=== PATIENT | male | born 1955 | race Hispanic/Latino ===

== ENCOUNTER 2017-09-19 10:12 | Inpatient (IN) | payer BC ==
--- NOTE | 2017-09-19 13:23 | Consultation ---
History of Present Illness Consult date: 09/19/17 Requesting physician: CHRIS MCCALL Consult reason: congestive heart failure, other History of present illness: Patient is a 62 year old male with Past Medical History of CHF, CKD, Pulmonary HTN, DM, CAD, PCI and Rt Ventricular Dysfunction. Patient presented today for schedule outpatient follow-up appt with Dr Ware with complaints of shortness of breath, orthopnea, PND and bilaterally lower extremites edema. Patient complained of abdominal and upper extremity ecchymosis for the past few days. Patient was then directly admitted from Cardiology office for further evaluation/management. Patient denies chest pain, palpitation, nausea, vomiting , diaphoresis, dizziness or syncope. Past History Past Medical History: acute [place], CAD, diabetes, heart failure, hypertension, other (RV Dysfunction, Pulmonary HTN, CKD) Past Surgical History: Other (BiV ICD, PCI) Medications and Allergies Allergies Allergy/AdvReac Type Severity Reaction Status Date / Time iodine Allergy Anaphylaxis Verified 05/01/17 09:49 latex AdvReac Unknown Unverified 09/19/17 10:30 Home Medications Medication Instructions Recorded Confirmed Last Taken Type Aspirin EC [Aspirin Enteric Coated 81 mg PO DAILY 05/01/17 05/01/17 04/23/17 History TAB] AtorvaSTATin 80 mg PO DAILY 05/01/17 05/01/17 04/23/17 History Brilinta 90 mg PO DAILY 05/01/17 05/01/17 04/23/17 History Carvedilol 3.125 mg PO BID 05/01/17 05/01/17 04/23/17 History Renvela 800 mg PO TID 05/01/17 05/01/17 04/23/17 History
--- NOTE | 2017-09-19 13:27 | XRay Report ---
AP CHEST: HISTORY: Short of breath No comparison. There is moderate cardiomegaly, mild pulmonary venous congestion and moderate to large right pleural effusion which compresses the inferior half of the right lung. No left pleural effusion. Pacemaker device is in position. IMPRESSION: CHF
--- NOTE | 2017-09-19 13:41 | Event Note ---
Date: 09/19/17 Patient is a 62 year old male with a past medical history significant for acute on chronic systolic heart failure, ICMP (EF20), CKD, Pulmonary HTN, DM, CAD, PCI , recent BI-V AICD implantation. He is followed in our office by Dr. Ware. Patient presented today for scheduled outpatient follow-up appt with Dr Ware with complaints of progressively worsening shortness of breath, orthopnea, PND and bilateral lower extremity edema for the past several weeks. Patient also c/o of abdominal and bilateral upper extremity ecchymosis for the past few days. Patient was then referred to for direct admit per hospitalists for further evaluation/management. Patient denies chest pain, palpitations, nausea, vomiting, diaphoresis, dizziness or syncope. Of note, patient underwent BiV ICD implantation on 09/12/2017 @ [facility] per Dr Velasquez. Patient was discharged from [facility] on 09/14/2017 following ICD implantation and treatment for acute on chronic systolic heart failure. Following admission, patient is found to be short of breath at rest; chest x ray reveals moderate to large right pleural effusion with mild pulmonary venous congestion; ECG with no acute ischemic changes. Patient will be initiated on IV diuretics and inotropic therapy. Pulmonary and nephrology have been consulted. Mario DUMAS NP / DR. SILVIO GE
[2017-09-19] MEDS ORDERED: DOBUTREX DRIP 500MG/D5W 250ML 500 MG/250 ML BAG IV SCH (14:00)
[2017-09-19 14:26] LABS: Hemoglobin 10.4 gm/dl (11.8-15.2); Mean Corpuscular HGB Conc 34 % (32-34); Mean Corpuscular Hemoglobin 30 pg (28-32); Mean Corpuscular Volume 89 fl (84-94); Platelet Count 178 K/mm3 (140-440); Red Blood Count 3.47 M/mm3 (3.65-5.03); White Blood Count 10.7 K/mm3 (4.5-11.0)
[2017-09-19 14:39] LABS: INR 1.06 (0.87-1.13)
[2017-09-19 16:05] LABS: Albumin 3.6 g/dL (3.9-5); Albumin/Globulin Ratio 1.2 %; Bilirubin,Total 0.9 mg/dL (0.1-1.2); Calcium 8.9 mg/dL (8.4-10.2); Chloride 95.6 mmol/L (98-107); Potassium 4.2 mmol/L (3.6-5.0); Total Protein 6.6 g/dL (6.3-8.2)
[2017-09-19] MEDS: BUMEX IV SCH (19:30)
--- NOTE | 2017-09-19 19:45 | History and Physical Report ---
History of Present Illness Date of admission: 09/19/17 11:56 Chief complaint: I cant breathe History of present illness: 62 YO Male with Systolic CHF(EF 20%), Pulmonary HTN, Chronic Respiratory Failure , HTN, DM, CAD directly admitted to the hospitalist service at the request of Dr. Beasley. Pt seen and evaluated upon arrival on telemetry floor. Pt states that he has experienced progressively worsening shortness of breath over the past 3 week. Pt now has symptoms at rest, and has difficulty with ambultion and conducting activities of daily living due to shortness of breath. Pt acknowledges Orthopnea/PND, as well as worsening bilateral lower extremity edema. Pt states that he is compliant with medication, and low sodium diet. Patient denies fever, chills, chest pain, palpitations, nausea, vomiting, diaphoresis, dizziness or syncope, prolonged travel/immobility, hemoptysis, trauma, individual/family history of DVT/PE. Past History Past Medical History: CAD, diabetes, heart failure, hypertension Past Surgical History: Other (ICD Placement) Social history: , lives with family Family history: hypertension Medications and Allergies Allergies Allergy/AdvReac Type Severity Reaction Status Date / Time iodine Allergy Anaphylaxis Verified 05/01/17 09:49 latex AdvReac Unknown Unverified 09/19/17 10:30 Home Medications Medication Instructions Recorded Confirmed Last Taken Type Aspirin EC [Aspirin Enteric Coated 81 mg PO DAILY 05/01/17 09/19/17 09/19/17 09: 00 History TAB] AtorvaSTATin 80 mg PO DAILY 05/01/17 09/19/17 09/19/17 09:00 History Carvedilol 3.125 mg PO BID 05/01/17 09/19/17 09/19/17 09:00 History Levemir VIAL 35 units SC HS 09/19/17 09/19/17 09/18/17 22:00 History Plavix 75 mg PO DAILY 09/19/17 09/19/17 09/19/17 09:00 History Active Meds: Active Medications Aspirin (Baby Aspirin) 81 mg PO QDAY [facility] Atorvastatin Calcium (Lipitor) 80 mg PO QHS [facility] Bumetanide (Bumex) 1 mg IV BID@0600,1800 [facility] Carvedilol (Coreg) 12.5 mg PO BID [facility] Clopidogrel Bisulfate (Plavix) 75 mg PO QDAY [facility] Dobutamine HCl/Dextrose (Dobutrex Drip 500mg/D5w 250ml) 500 mg in 250 mls @ 12.915 mls/hr IV [facility] PRN Reason: 5 MCG/KG/MIN Review of Systems Constitutional: weight gain, no fever, no chills Ears, nose, mouth and throat: no ear pain, no ear discharge, no tinnitis, no decreased hearing, no nose pain, no nasal congestion Cardiovascular: orthopnea, shortness of breath, dyspnea on exertion, paroxysmal nocturnal dyspnea, leg edema, decreased exercise tolerance, no chest pain Respiratory: no cough, no cough with sputum, no excessive sputum, no hemoptysis Gastrointestinal: no nausea, no vomiting, no diarrhea, no constipation Genitourinary Male: no dysuria, no hematuria, no flank pain, no discharge Rectal: no pain, no incontinence, no bleeding Musculoskeletal: no neck stiffness, no neck pain, no shooting arm pain, no arm numbness/tingling Integumentary: no rash, no pruritis, no redness, no sores, no wounds Neurological: no head injury, no paralysis, no weakness, no parathesias, no numbness Psychiatric: no anxiety, no memory loss, no change in sleep habits, no sleep disturbances Endocrine: no cold intolerance, no heat intolerance, no polyphagia, no excessive thirst, no polydipsia Hematologic/Lymphatic: no easy bruising, no easy bleeding Allergic/Immunologic: no urticaria, no allergic rhinitis, no wheezing Exam - Constitutional General appearance: Present: mild distress - EENT Eyes: Present: PERRL ENT: hearing intact, clear oral mucosa - Neck Neck: Present: supple, normal ROM - Respiratory Respiratory effort: labored Respiratory: bilateral: diminished, rales - Cardiovascular Heart Sounds: Present: S1 & S2. Absent: rub, click - Extremities Extremities: pulses symmetrical, No edema Extremity abnormal: edema Peripheral Pulses: within normal limits - Abdominal General gastrointestinal: Present: soft, non-tender, non-distended, normal bowel sounds Male genitourinary: Present: normal - Integumentary Integumentary: Present: clear, warm, dry - Musculoskeletal Musculoskeletal: gait normal, strength equal bilaterally - Psychiatric Psychiatric: appropriate mood/affect, intact judgment & insight - Neurologic Neurologic: CNII-XII intact, moves all extremities Results - Labs CBC & Chem 7: 09/19/17 14:02 09/20/17 04:00 Labs: Abnormal lab results 09/19/17 09/19/17 09/19/17 Range/Units 14:02 14:02 14:02 RBC 3.47 L (3.65-5.03) M/mm3 Hgb 10.4 L (11.8-15.2) gm/dl Hct 31.0 L (35.5-45.6) % Chloride 95.6 L (98-107) mmol/L Carbon Dioxide 31 H (22-30) mmol/L BUN 26 H (9-20) mg/dL Glucose 172 H (75-100) mg/dL POC Glucose (70-105) Alkaline Phosphatase 135 H (35-129) units/L NT-Pro-B Natriuret Pep 7991 H (0-900) pg/mL Albumin 3.6 L (3.9-5) g/dL 09/19/17 Range/Units 16:46 RBC (3.65-5.03) M/mm3 Hgb (11.8-15.2) gm/dl Hct (35.5-45.6) % Chloride (98-107) mmol/L Carbon Dioxide (22-30) mmol/L BUN (9-20) mg/dL Glucose (75-100) mg/dL POC Glucose 165 H (70-105) Alkaline Phosphatase (35-129) units/L NT-Pro-B Natriuret Pep (0-900) pg/mL Albumin (3.9-5) g/dL Assessment and Plan - Patient Problems (1) CHF (congestive heart failure) Current Visit: Yes Status: Acute Qualifiers: Congestive heart failure type: systolic Congestive heart failure chronicity : acute on chronic Qualified Code(s): I50.23 - Acute on chronic systolic ( congestive) heart failure Plan to address problem: Cardiology consulted, Admit to telemetry, cardiac enzymes, ekg, echo, afterload reduction, monitor uop q shift, monitor for negative fluid balance, diuresis, low sodium diet, Ionotropic support, nephrology consulted. (2) Acute respiratory failure Current Visit: Yes Status: Acute Qualifiers: Respiratory failure complication: hypoxia Qualified Code(s): J96.01 - Acute respiratory failure with hypoxia Plan to address problem: Supplemental oxygen, nebulizer therapy, pulmonary toilet, NIPPV as clinically indicated, diuretic therapy, incentive spirometry, early ambulation, Pulmonary consulted, (3) Diabetes Current Visit: Yes Status: Acute Qualifiers: Diabetes mellitus type: D Diabetes mellitus complication status: D Diabetes mellitus complication detail: D Diabetic retinopathy severity: D Proliferative retinopathy type: P Diabetes mellitus macular edema: D Diabetes mellitus alf insulin use: D Laterality: L Chronic kidney disease stage: C Plan to address problem: AD diet, insulin accu check (4) CAD (coronary artery disease) Current Visit: Yes Status: Acute Qualifiers: Coronary Disease-Associated Artery/Lesion type: [place] artery [place] vs. transplanted heart: [place] heart Associated angina: A Plan to address problem: Statin therapy, antiplatelet therapy, low cholesterol diet, telemetry monitoring , (5) DVT prophylaxis Current Visit: Yes Status: Acute
[2017-09-19] MEDS: COREG PO SCH (22:55)
[2017-09-20 06:11] LABS: Calcium 8.7 mg/dL (8.4-10.2); Chloride 96.4 mmol/L (98-107); Potassium 4.7 mmol/L (3.6-5.0)
[2017-09-20] MEDS: BUMEX IV SCH ×2 (06:58→17:46)
[2017-09-20] MEDS ORDERED: D50W (25GM) Syringe IV PRN (10:47)
--- NOTE | 2017-09-20 10:51 | Progress Note ---
Assessment and Plan Assessment and plan: 62 year old male with a past medical history significant for chronic systolic heart failure, ICMP (EF20), CKD, Pulmonary HTN, DM, CAD, PCI, recent BI-V AICD implantation, Chronic Respiratory Failure, directly admitted to the hospitalist service at the request of Dr. Beasley, admitted for CHF SOB, ART, orthopnea, CHF exacerbation RIght lung effusion- moderate to large new onset for thoracentesis, pulmonary input appreciated CHF (congestive heart failure) continue dobutamine drip, cards input appreciated, continue diuretics, BP unable to tolerate ricki/arb, continue B-Bl Acute respiratory failure continue supplemental oxygen Diabetes AD diet, insulin accu check CAD (coronary artery disease) patient known to [facility] Statin therapy, antiplatelet therapy, low cholesterol diet, telemetry monitoring , History Interval history: c/o sob, orthopnea and art, denies cp Hospitalist Physical - Physical exam Narrative exam: General.: Appears well, no distress, nontoxic HEENT: Moist mucous membranes, extraocular muscles intact, no lymphadenopathy Neck: supple Cardiac: S1-S2 heard Lungs: abscense of breath sounds in R lower lungs Abdomen: soft , nontender, nondistended, bowel sounds positive Extremities: no edema clubbing or cyanosis Skin: no rash or lesions Neurologic: no gross focal deficits Psych: appropriate behavior, appropriate mood, corporative, judgment intact - Constitutional Vitals: Temp Pulse Resp BP Pulse Ox 98.4 F 93 H 16 96/69 95 09/20/17 07:45 09/20/17 07:45 09/20/17 07:45 09/20/17 07:45 09/20/17 07:45 General appearance: Present: mild distress Results - Labs CBC & Chem 7: 09/22/17 05:19 09/22/17 05:19 Labs: Laboratory Last Values WBC 10.7 K/mm3 (4.5-11.0) 09/19/17 14:02 RBC 3.47 M/mm3 (3.65-5.03) L 09/19/17 14:02 Hgb 10.4 gm/dl (11.8-15.2) L 09/19/17 14:02 Hct 31.0 % (35.5-45.6) L 09/19/17 14:02 MCV 89 fl (84-94) 09/19/17 14:02 MCH 30 pg (28-32) 09/19/17 14:02 MCHC 34 % (32-34) 09/19/17 14:02 RDW 15.0 % (13.2-15.2) 09/19/17 14:02 Plt Count 178 K/mm3 (140-440) 09/19/17 14:02 PT 14.3 Sec. (12.2-14.9) 09/19/17 14:01 INR 1.06 (0.87-1.13) 09/19/17 14:01 Sodium 138 mmol/L (137-145) 09/20/17 04:00 Potassium 4.7 mmol/L (3.6-5.0) 09/20/17 04:00 Chloride 96.4 mmol/L (98-107) L 09/20/17 04:00 Carbon Dioxide 31 mmol/L (22-30) H 09/20/17 04:00 Anion Gap 15 mmol/L 09/20/17 04:00 BUN 30 mg/dL (9-20) H 09/20/17 04:00 Creatinine 1.5 mg/dL (0.8-1.5) 09/20/17 04:00 Estimated GFR 48 ml/min 09/20/17 04:00 BUN/Creatinine Ratio 20 % 09/20/17 04:00 Glucose 211 mg/dL (75-100) H 09/20/17 04:00 POC Glucose 171 (70-105) H 09/19/17 21:37 Calcium 8.7 mg/dL (8.4-10.2) 09/20/17 04:00 Total Bilirubin 0.90 mg/dL (0.1-1.2) 09/19/17 14:02 AST 15 units/L (5-40) 09/19/17 14:02 ALT 8 units/L (7-56) 09/19/17 14:02 Alkaline Phosphatase 135 units/L (35-129) H 09/19/17 14:02 NT-Pro-B Natriuret Pep 7991 pg/mL (0-900) H 09/19/17 14:02 Total Protein 6.6 g/dL (6.3-8.2) 09/19/17 14:02 Albumin 3.6 g/dL (3.9-5) L 09/19/17 14:02 Albumin/Globulin Ratio 1.2 % 09/19/17 14:02
--- NOTE | 2017-09-20 11:24 | Consultation ---
History of Present Illness Consult date: 09/20/17 Requesting physician: CHRIS MCCALL Consult reason: congestive heart failure History of present illness: Patient is a 62 year old male with a past medical history significant for acute on chronic systolic heart failure, ICMP (EF20%), CKD, Pulmonary HTN, DM, CAD, PCI, recent BI-V AICD implantation. He is followed in our office by Dr. Ware. Patient presented today for scheduled outpatient follow-up appt with Dr Ware with complaints of progressively worsening shortness of breath, orthopnea, PND and bilateral lower extremity edema for the past several weeks. Patient also c/o of abdominal and bilateral upper extremity ecchymosis for the past few days. Patient was then referred to for direct admit per hospitalists for further evaluation/management. Patient denies chest pain, palpitations, nausea, vomiting, diaphoresis, dizziness or syncope. Of note, patient underwent BiV ICD implantation on 09/12/2017 @ [facility] per Dr Velasquez. Patient was discharged from [facility] on 09/14/2017 following ICD implantation and treatment for acute on chronic systolic heart failure. Following admission, patient is found to be short of breath at rest; chest x ray reveals moderate to large right pleural effusion with mild pulmonary venous congestion; ECG with no acute ischemic changes. Patient will be initiated on IV diuretics and inotropic therapy. Pulmonary and nephrology have been consulted. Past History Past Medical History: CAD, diabetes, heart failure, hypertension Past Surgical History: Other (ICD Placement) Social history: , lives with family Family history: hypertension Medications and Allergies Allergies Allergy/AdvReac Type Severity Reaction Status Date / Time iodine Allergy Anaphylaxis Verified 05/01/17 09:49 latex AdvReac Unknown Unverified 09/19/17 10:30 Home Medications Medication Instructions Recorded Confirmed Last Taken Type Aspirin EC [Aspirin Enteric Coated 81 mg PO DAILY 05/01/17 09/19/17 09/19/17 09: 00 History TAB] AtorvaSTATin 80 mg PO DAILY 05/01/17 09/19/17 09/19/17 09:00 History Carvedilol 3.125 mg PO BID 05/01/17 09/19/17 09/19/17 09:00 History Levemir VIAL 35 units SC HS 09/19/17 09/19/17 09/18/17 22:00 History Plavix 75 mg PO DAILY 09/19/17 09/19/17 09/19/17 09:00 History Active Meds: Active Medications Aspirin (Baby Aspirin) 81 mg PO QDAY [facility] Atorvastatin Calcium (Lipitor) 80 mg PO QHS [facility] Last Admin: 09/19/17 22:55 Dose: 80 mg Bumetanide (Bumex) 1 mg IV BID@0600,1800 [facility] Last Admin: 09/20/17 06:58 Dose: 1 mg Carvedilol (Coreg) 12.5 mg PO BID [facility] Last Admin: 09/19/17 22:55 Dose: 12.5 mg Clopidogrel Bisulfate (Plavix) 75 mg PO QDAY [facility] Dextrose (D50w (25gm) Syringe) 50 ml IV PRN PRN PRN Reason: Hypoglycemia Dobutamine HCl/Dextrose (Dobutrex Drip 500mg/D5w 250ml) 500 mg in 250 mls @ 12.915 mls/hr IV DIRECT [facility] PRN Reason: 5 MCG/KG/MIN Insulin Aspart (Novolog) 0 units SUB-Q ACHS [facility] PRN Reason: Protocol Insulin Detemir (Levemir) 35 units SUB-Q QHS [facility] Review of Systems Constitutional: no fever, no chills, no sweats Ears, nose, mouth and throat: no ear pain, no nose pain, no sinus pressure, no sinus pain Cardiovascular: orthopnea, edema, shortness of breath, dyspnea on exertion, paroxysmal nocturnal dyspnea, high blood pressure, leg edema, decreased exercise tolerance, no chest pain, no palpitations, no rapid/irregular heart beat, no syncope, no lightheadedness Respiratory: shortness of breath, dyspnea on exertion, no cough, no congestion, no wheezing, no pain on inspiration Gastrointestinal: no abdominal pain, no nausea, no vomiting, no diarrhea, no constipation, no change in bowel habits Genitourinary Male: no dysuria, no hematuria, no flank pain, no discharge, no urinary frequency, no urinary hesitancy Musculoskeletal: no neck stiffness, no neck pain, no shooting arm pain, no arm numbness/tingling, no low back pain, no shooting leg pain Integumentary: no rash, no pruritis, no redness, no sores, no wounds Neurological: no head injury, no paralysis, no weakness, no parathesias, no numbness, no tingling, no seizures, no syncope Psychiatric: anxiety Endocrine: no cold intolerance, no heat intolerance Hematologic/Lymphatic: no easy bruising, no easy bleeding, no lymphadenopathy Allergic/Immunologic: no urticaria, no wheezing, no persistent infections Physical Examination Vital Signs Temp Pulse Resp BP Pulse Ox 97.5 F L 94 H 16 105/74 96 09/19/17 12:23 09/19/17 12:23 09/19/17 12:23 09/19/17 12:23 09/19/17 12:23 General appearance: mild distress (SOB) HEENT: Positive: PERRL, Normocephaly, Mucus Membranes Moist Neck: Positive: neck supple, trachea midline Cardiac: Positive: Reg Rate and Rhythm, S1/S2 Lungs: Positive: Decreased Breath Sounds (right side), Rales Neuro: Positive: Grossly Intact, Cranial Nerve 2-12 Intact Abdomen: Positive: Unremarkable, Soft, Active Bowel Sounds. Negative: Tender Skin: Positive: Other (ecchymosis to BUE and abdomen) Musculoskeletal: Fluid Collection, Normal Range of Motion Extremities: Present: +3 Edema (BLE pitting ) Results 09/19/17 14:02 09/20/17 04:00 Cardiac Enzymes 09/19/17 Range/Units 14:02 AST 15 (5-40) units/L Coagulation 09/19/17 Range/Units 14:01 PT 14.3 (12.2-14.9) Sec. INR 1.06 (0.87-1.13) CBC 09/19/17 Range/Units 14:02 WBC 10.7 (4.5-11.0) K/mm3 RBC 3.47 L (3.65-5.03) M/mm3 Hgb 10.4 L (11.8-15.2) gm/dl Hct 31.0 L (35.5-45.6) % Plt Count 178 (140-440) K/mm3 Comprehensive Metabolic Panel 09/19/17 09/20/17 Range/Units 14:02 04:00 Sodium 140 138 (137-145) mmol/L Potassium 4.2 4.7 (3.6-5.0) mmol/L Chloride 95.6 L 96.4 L (98-107) mmol/L Carbon Dioxide 31 H 31 H (22-30) mmol/L BUN 26 H 30 H (9-20) mg/dL Creatinine 1.4 1.5 (0.8-1.5) mg/dL Glucose 172 H 211 H (75-100) mg/dL Calcium 8.9 8.7 (8.4-10.2) mg/dL AST 15 (5-40) units/L ALT 8 (7-56) units/L Alkaline Phosphatase 135 H (35-129) units/L Total Protein 6.6 (6.3-8.2) g/dL Albumin 3.6 L (3.9-5) g/dL - Imaging and Cardiology Echo: report reviewed (08/13/2017: EF 15-20%, LA mildly dilated, mild MR, mild TR , LV mildly dilated, EF 15-20%, severe pulm HTN RVSP 68mmHg) EKG: report reviewed, image reviewed EKG interpretations - Telemetry EKG Rhythm: Paced Pacemaker: ventricular pacing w/capt Assessment and Plan Assessment: Acute on chronic systolic biventricular heart failure Right pleural effusion ICMP (EF20%) - recent BI-V AICD implantation CKD Anemia Severe pulmonary HTN DM CAD s/p PCI 02/2017 Plan: Cont dobutamine gtt and other present cardiac management. Await pulmonary consultation. For possible thoracentesis. Will plan for referral to [facility] for consideration of possible transplantation. Assessment and plan reviewed with pt at bedside. The pt has been seen in conjunction with Dr. SILVIO Beasley who agrees with the assessment and plan of care.
[2017-09-20] MEDS: COREG PO SCH ×2 (11:49→22:08)
[2017-09-20] MEDS: PLAVIX PO SCH (11:49)
[2017-09-20] MEDS: BABY ASPIRIN PO SCH (11:50)
[2017-09-20] MEDS: NOVOLOG SUB-Q SCH ×3 (12:00→22:10)
--- NOTE | 2017-09-20 13:12 | Consultation ---
History of Present Illness Consult date: 09/20/17 Requesting physician: SANTA GE Reason for consult: pleural effusion History of present illness: 62 y/o male with systolic heart failure. Admitted with exacerbation of systolic heart failure. Found to have large right sided pleural effusion. Called by Cardiology to evaluate for possible thoracentesis. Spoke with patient at bedside and described procedure. Patient currently short of breath with exertion and at rest. On room air with decent sats. No chest pain. Past History Past Medical History: CAD, diabetes, heart failure, hypertension Past Surgical History: Other (ICD Placement) Social history: , lives with family Family history: hypertension Medications and Allergies Allergies Allergy/AdvReac Type Severity Reaction Status Date / Time iodine Allergy Anaphylaxis Verified 05/01/17 09:49 latex AdvReac Unknown Unverified 09/19/17 10:30 Home Medications Medication Instructions Recorded Confirmed Last Taken Type Aspirin EC [Aspirin Enteric Coated 81 mg PO DAILY 05/01/17 09/19/17 09/19/17 09: 00 History TAB] AtorvaSTATin 80 mg PO DAILY 05/01/17 09/19/17 09/19/17 09:00 History Carvedilol 3.125 mg PO BID 05/01/17 09/19/17 09/19/17 09:00 History Levemir VIAL 35 units SC HS 09/19/17 09/19/17 09/18/17 22:00 History Plavix 75 mg PO DAILY 09/19/17 09/19/17 09/19/17 09:00 History Active Meds: Active Medications Aspirin (Baby Aspirin) 81 mg PO QDAY [facility] Last Admin: 09/20/17 11:50 Dose: 81 mg Atorvastatin Calcium (Lipitor) 80 mg PO QHS [facility] Last Admin: 09/19/17 22:55 Dose: 80 mg Bumetanide (Bumex) 1 mg IV BID@0600,1800 [facility] Last Admin: 09/20/17 06:58 Dose: 1 mg Carvedilol (Coreg) 12.5 mg PO BID [facility] Last Admin: 09/20/17 11:49 Dose: 12.5 mg Clopidogrel Bisulfate (Plavix) 75 mg PO QDAY [facility] Last Admin: 09/20/17 11:49 Dose: 75 mg Dextrose (D50w (25gm) Syringe) 50 ml IV PRN PRN PRN Reason: Hypoglycemia Dobutamine HCl/Dextrose (Dobutrex Drip 500mg/D5w 250ml) 500 mg in 250 mls @ 12.915 mls/hr IV DIRECT [facility] PRN Reason: 5 MCG/KG/MIN Insulin Aspart (Novolog) 0 units SUB-Q ACHS [facility] PRN Reason: Protocol Insulin Detemir (Levemir) 35 units SUB-Q QHS [facility] Review of Systems All systems: negative Physical Examination Vital signs: Vital Signs Temp Pulse Resp BP Pulse Ox 97.5 F L 94 H 16 105/74 96 09/19/17 12:23 09/19/17 12:23 09/19/17 12:23 09/19/17 12:23 09/19/17 12:23 General appearance: no acute distress, alert Eyes: non-icteric ENT: oropharynx moist Neck: supple, JVD Ascultation: Right: diminished breath sounds (base) Percussion: Right: dull (base) Cardiovascular: regular rate and rhythm Gastrointestinal: normoactive bowel sounds, soft Extremities: edema Results - Laboratory Findings CBC and BMP: 09/19/17 14:02 09/20/17 04:00 PT/INR, D-dimer PT 14.3 Sec. (12.2-14.9) 09/19/17 14:01 INR 1.06 (0.87-1.13) 09/19/17 14:01 Abnormal lab findings: Abnormal Labs 09/19/17 09/19/17 09/19/17 14:02 14:02 14:02 RBC 3.47 L Hgb 10.4 L Hct 31.0 L Chloride 95.6 L Carbon Dioxide 31 H BUN 26 H Glucose 172 H POC Glucose Alkaline Phosphatase 135 H NT-Pro-B Natriuret Pep 7991 H Albumin 3.6 L 09/19/17 09/19/17 09/20/17 16:46 21:37 04:00 RBC Hgb Hct Chloride 96.4 L Carbon Dioxide 31 H BUN 30 H Glucose 211 H POC Glucose 165 H 171 H Alkaline Phosphatase NT-Pro-B Natriuret Pep Albumin 09/20/17 09/20/17 07:36 11:57 RBC Hgb Hct Chloride Carbon Dioxide BUN Glucose POC Glucose 179 H 301 H Alkaline Phosphatase NT-Pro-B Natriuret Pep Albumin - Diagnostic Findings Chest x-ray: image reviewed (moderate right sided effusion) Assessment and Plan 62 y/o male with systolic heart failure admitted with heart failure exacerbation and right sided effusion. Long discussion at bedside with patient. Explained risk and benefits, and despite him being on plavix, I am willing to perform thoracentesis. patient is very concerned about the procedure despite thorough explanation. Explained to patient that there was no verdugo in a decision as I am here this weekend. Will stop back by today unless I hear from nursing sooner. Thank you for this consult.
--- NOTE | 2017-09-20 14:42 | Procedure Note ---
Date of procedure: 09/20/17 Pre-op diagnosis: Pleural effusion Post-op diagnosis: other (Bloody Pleural effusion) Procedure: After obtaining informed consent. Ultrasound obtained and site visualized. Marked and then patient was prepped and draped. Lidocaine 1 % used for numbing. Rib hit and needle advanced over the rib. blood effusion return. Lidocaine infused coming out Cather placed without difficulty and attached to [address] valve. Dark fluid removed easily without difficulty. A total of 2.5 liters removed. Patient never complained of chest pain but did state that he felt somewhat dizzy which is why I stopped. Checked orthostatics post procedure and blood pressure actually improved with standing. No chest pain noted. Specimen sent to lab for LDH, protein, cytology, glucose, cell count with diff and hematocrit. Anesthesia: local Surgeon: BROOKLYNN MCKINNON Estimated blood loss: minimal Pathology: list (right effusion sent for cytology) Specimen disposition: to lab Condition: stable Disposition: floor (ordered stat repeat CXR)
--- NOTE | 2017-09-20 15:08 | XRay Report ---
Single view chest: Compared to 09/29/17 History: Status post thoracentesis. Findings: Cardiomegaly. Trachea is midline. No consolidation, pneumothorax or pleural effusion. Impression: No evidence of pneumothorax.
[2017-09-20 15:10] LABS: Albumin 3.2 g/dL (3.9-5); Albumin/Globulin Ratio 1.1 %; Bilirubin,Direct 0.3 mg/dL (0-0.2); Bilirubin,Indirect 0.8 mg/dL; Bilirubin,Total 1.1 mg/dL (0.1-1.2); Total Protein 6.2 g/dL (6.3-8.2)
--- NOTE | 2017-09-20 16:22 | Consultation ---
History of Present Illness - Reason for Consult Consult date: 09/20/17 chronic renal failure Requesting physician: JAX DUMAS - History of Present Illness This is a 62 year old M with PMHx of hypertension, DM, CAD, PCI, acute on chronic systolic heart failure, ICMP (EF20%), recent BI-V AICD implantation, CKD stage 3, pulmonary hypertension, who was recently hospitalized at [facility] from 09/06 to 09/14 for acute on chronic CHF, underwent BIVAICD on 09/12. 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 pt is admitted directly for further management, CXR showed moderate cardiomegaly, pulmonary edema and moderate to large Rt pleural effusion. Pt was initiated on IV diuresis with bumex and underwent therapeutic thoracentesis today. renal consult is requested for management of CKD and volume control. Labs showed BUN/Cr at 30/1.5mg/dl. Based on chart review patient's baseline Cr was around 1.5mg/dl as outpatient. Pt states that he usually follows up with Dr Dolan for CKD as out patient. Past History Past Medical History: CAD, diabetes, heart failure, hypertension Past Surgical History: Other (ICD Placement) Social history: , lives with family Family history: hypertension Medications and Allergies Allergies Allergy/AdvReac Type Severity Reaction Status Date / Time iodine Allergy Anaphylaxis Verified 05/01/17 09:49 latex AdvReac Unknown Unverified 09/19/17 10:30 Home Medications Medication Instructions Recorded Confirmed Last Taken Type Aspirin EC [Aspirin Enteric Coated 81 mg PO DAILY 05/01/17 09/19/17 09/19/17 09: 00 History TAB] AtorvaSTATin 80 mg PO DAILY 05/01/17 09/19/17 09/19/17 09:00 History Carvedilol 3.125 mg PO BID 05/01/17 09/19/17 09/19/17 09:00 History Levemir VIAL 35 units SC HS 09/19/17 09/19/17 09/18/17 22:00 History Plavix 75 mg PO DAILY 09/19/17 09/19/17 09/19/17 09:00 History Active Meds: Active Medications Aspirin (Baby Aspirin) 81 mg PO QDAY [facility] Last Admin: 09/20/17 11:50 Dose: 81 mg Atorvastatin Calcium (Lipitor) 80 mg PO QHS [facility] Last Admin: 09/19/17 22:55 Dose: 80 mg Bumetanide (Bumex) 1 mg IV BID@0600,1800 [facility] Last Admin: 09/20/17 06:58 Dose: 1 mg Carvedilol (Coreg) 12.5 mg PO BID [facility] Last Admin: 09/20/17 11:49 Dose: 12.5 mg Clopidogrel Bisulfate (Plavix) 75 mg PO QDAY [facility] Last Admin: 09/20/17 11:49 Dose: 75 mg Dextrose (D50w (25gm) Syringe) 50 ml IV PRN PRN PRN Reason: Hypoglycemia Dobutamine HCl/Dextrose (Dobutrex Drip 500mg/D5w 250ml) 500 mg in 250 mls @ 12.915 mls/hr IV DIRECT [facility] PRN Reason: 5 MCG/KG/MIN Insulin Aspart (Novolog) 0 units SUB-Q ACHS [facility] PRN Reason: Protocol Last Admin: 09/20/17 12:00 Dose: 4 units Insulin Detemir (Levemir) 35 units SUB-Q QHS [facility] Review of Systems All systems: negative Constitutional: weakness Cardiovascular: orthopnea, edema, shortness of breath, dyspnea on exertion, paroxysmal nocturnal dyspnea Exam - Vital Signs Vital signs: Vital Signs Temp Pulse Resp BP Pulse Ox 97.5 F L 94 H 16 105/74 96 09/19/17 12:23 09/19/17 12:23 09/19/17 12:23 09/19/17 12:23 09/19/17 12:23 - General Appearance General appearance: well-developed, well-nourished, appears stated age EENT: ATNC, PERRL, mucous membranes moist Neck: Present: neck supple Respiratory: Decreased Breath Sounds Heart: regular, S1S2 Gastrointestinal: Present: normoactive bowel sounds Integumentary: no rash, other (2+ edema b/l LE ) Neurologic: no focal deficit, alert and oriented x3, strength 5/5, CN 3-12 intact Psychiatric: mood/affect appropriate, cooperative Results - Lab Results 09/19/17 14:02 09/20/17 04:00 Most recent lab results Calcium 8.7 mg/dL (8.4-10.2) 09/20/17 04:00 Laboratory Tests 09/19/17 09/19/17 09/19/17 14:01 14:02 14:02 PT 14.3 INR 1.06 AST 15 ALT 8 Alkaline Phosphatase 135 H Lactate Dehydrogenase NT-Pro-B Natriuret Pep 7991 H Total Protein 6.6 Albumin 3.6 L Albumin/Globulin Ratio 1.2 09/20/17 04:00 PT INR AST 15 ALT 7 Alkaline Phosphatase 121 Lactate Dehydrogenase 284 H NT-Pro-B Natriuret Pep Total Protein 6.2 L Albumin 3.2 L Albumin/Globulin Ratio 1.1 Assessment and Plan - Patient Problems (1) Acute on chronic congestive heart failure Current Visit: Yes Status: Acute Qualifiers: Congestive heart failure type: C Plan to address problem: started on IV bumex 1mg bid, strict I/Os, fluid restriction to 1.2L/day. Will titrate bumex dose to target net negative fluid balance of >1L/day as much as BP tolerates. on BB. Cont to hold lisinopril for now given borderline low BP. can resume once BP stabilizes. (2) Hypertensive chronic kidney disease with stage 1 through stage 4 chronic kidney disease, or unspecified chronic kidney disease Current Visit: Yes Status: Acute Plan to address problem: BP lower side with IV diuresis, will hold lisinopril for now. (3) Chronic kidney disease, stage III (moderate) Current Visit: Yes Status: Acute Plan to address problem: likely due to hypertensive nephrosclerosis/chronic cardiorenal syndrome. eGFR currently at baseline. cont supportive care for CKD, avoid nephrotoxins, NSAIDs , IV contrast. (4) Diabetes Current Visit: Yes Status: Chronic Qualifiers: Diabetes mellitus type: type 2 Diabetes mellitus complication status: D Diabetes mellitus complication detail: D Diabetic retinopathy severity: D Proliferative retinopathy type: P Diabetes mellitus macular edema: D Diabetes mellitus intermediate insulin use: D Laterality: L Chronic kidney disease stage: stage 3 (moderate) Plan to address problem: glucose control as per primary attending (5) Pulmonary edema Current Visit: Yes Status: Acute Qualifiers: Chronicity: C Plan to address problem: cont IV diuresis with bumex (6) Pleural effusion, right Current Visit: Yes Status: Acute Plan to address problem: s/p therapeutic thoracentesis today.
[2017-09-20 16:41] LABS: Basophils Body Fluid 0 %; Eosinophils Body Fluid 0 %; Reactive Lymph Body Fluid 0 %
[2017-09-20] MEDS: DOBUTREX DRIP 500MG/D5W 250ML 500 MG/250 ML BAG IV SCH (17:46)
--- NOTE | 2017-09-20 21:15 | XRay Report ---
FINAL REPORT EXAM: XR CHEST 1V AP HISTORY: s/p thoracentesis TECHNIQUE: AP portable view of the chest PRIORS: CXR 09/20/2017 at 201 hours FINDINGS: Lines, tubes, and devices: A 3 lead left subclavian pacemaker is unchanged. Lungs and pleura: Trachea is normal in position. Lungs are clear of infiltrate, pleural effusion, vascular congestion, or pneumothorax. No change. Cardiomediastinal silhouette: The heart is enlarged but stable. Other: Bony structures are stable. Orthopedic tack is present in the right humeral head. IMPRESSION: No acute cardiopulmonary process seen. No change. No evidence for pneumothorax.
[2017-09-20] MEDS ORDERED: LEVEMIR 35 UNIT SC SCH (22:00)
[2017-09-20] MEDS ORDERED: LEVEMIR SUB-Q SCH (22:00)
[2017-09-20] MEDS ORDERED: NON-FORMULARY (Carvedilol 3.125 MG) PO SCH (22:00)
[2017-09-20] MEDS: LEVEMIR SUB-Q SCH (22:10)
[2017-09-21 04:58] LABS: Hematocrit 27.1 % (35.5-45.6); Hemoglobin 9.3 gm/dl (11.8-15.2); Mean Corpuscular HGB Conc 34 % (32-34); Mean Corpuscular Hemoglobin 31 pg (28-32); Mean Corpuscular Volume 89 fl (84-94); Platelet Count 175 K/mm3 (140-440); Red Blood Count 3.05 M/mm3 (3.65-5.03)
[2017-09-21 05:11] LABS: Calcium 8.5 mg/dL (8.4-10.2); Chloride 99.4 mmol/L (98-107); Potassium 3.8 mmol/L (3.6-5.0)
[2017-09-21] MEDS: BUMEX IV SCH ×2 (05:55→17:27)
--- NOTE | 2017-09-21 08:44 | Progress Note ---
Assessment and Plan 62 y/o male with systolic heart failure admitted with heart failure exacerbation and right sided effusion. Bloody effusion. Exact etiology unknown. Maybe traumatic tap? Patient is on plavix. Will repeat CXR tomorrow. If continues to be stable. Will sign off. Follow up of remainder of PFA and cytology. If protein and LDH are both low, most likely traumatic tap. Subjective Date of service: 09/21/17 Interval history: Repeat CXR last night was stable. Did not show recurrence of effusion. Patient is stable. BP stable. Objective Vital Signs - 12hr 09/20/17 09/21/17 23:45 04:07 Temperature 98.5 F 98.3 F Pulse Rate 92 H 84 Respiratory 20 20 Rate Blood Pressure 80/57 89/56 O2 Sat by Pulse 95 92 Oximetry Constitutional: no acute distress, alert Eyes: non-icteric ENT: oropharynx moist Neck: supple, JVD Ascultation: Bilateral: clear Percussion: Right: dull (base) Cardiovascular: regular rate and rhythm Gastrointestinal: normoactive bowel sounds, soft Extremities: edema CBC and BMP: 09/21/17 03:44 09/21/17 03:44 ABG, PT/INR, D-dimer: PT/INR, D-dimer PT 14.3 Sec. (12.2-14.9) 09/19/17 14:01 INR 1.06 (0.87-1.13) 09/19/17 14:01 Abnormal lab findings: Abnormal Labs 09/19/17 09/19/17 09/19/17 14:02 14:02 14:02 RBC 3.47 L Hgb 10.4 L Hct 31.0 L Chloride 95.6 L Carbon Dioxide 31 H BUN 26 H Glucose 172 H POC Glucose Direct Bilirubin Alkaline Phosphatase 135 H Lactate Dehydrogenase NT-Pro-B Natriuret Pep 7991 H Total Protein Albumin 3.6 L 09/19/17 09/19/17 09/20/17 16:46 21:37 04:00 RBC Hgb Hct Chloride 96.4 L Carbon Dioxide 31 H BUN 30 H Glucose 211 H POC Glucose 165 H 171 H Direct Bilirubin Alkaline Phosphatase Lactate Dehydrogenase NT-Pro-B Natriuret Pep Total Protein Albumin 09/20/17 09/20/17 09/20/17 04:00 07:36 11:57 RBC Hgb Hct Chloride Carbon Dioxide BUN Glucose POC Glucose 179 H 301 H Direct Bilirubin 0.3 H Alkaline Phosphatase Lactate Dehydrogenase 284 H NT-Pro-B Natriuret Pep Total Protein 6.2 L Albumin 3.2 L 09/20/17 09/20/17 09/21/17 16:35 21:42 03:44 RBC 3.05 L Hgb 9.3 L Hct 27.1 L Chloride Carbon Dioxide BUN Glucose POC Glucose 131 H 214 H Direct Bilirubin Alkaline Phosphatase Lactate Dehydrogenase NT-Pro-B Natriuret Pep Total Protein Albumin 09/21/17 03:44 RBC Hgb Hct Chloride Carbon Dioxide BUN 30 H Glucose 57 L POC Glucose Direct Bilirubin Alkaline Phosphatase Lactate Dehydrogenase NT-Pro-B Natriuret Pep Total Protein Albumin
[2017-09-21] MEDS: COREG PO SCH (09:06)
[2017-09-21] MEDS: BABY ASPIRIN PO SCH (09:07)
[2017-09-21] MEDS: NOVOLOG SUB-Q SCH ×4 (09:07→21:45)
[2017-09-21] MEDS: PLAVIX PO SCH (09:07)
[2017-09-21] MEDS ORDERED: NON-FORMULARY (Plavix 75 MG) PO SCH (10:00)
[2017-09-21] MEDS ORDERED: NON-FORMULARY (Atorvastatin 80 MG) PO SCH (10:00)
--- NOTE | 2017-09-21 10:22 | Progress Note ---
Assessment and Plan 62yo WM: Assessment: Acute on chronic systolic biventricular heart failure Right pleural effusion (s/p thoracentesis) ICMP (EF20%) - recent BI-V AICD implantation CKD Anemia Severe pulmonary HTN DM CAD s/p PCI 02/2017 Plan: Clinically improved. Cont dobutamine gtt (for 24 more hours) and other present cardiac management. Will plan for referral to [place] [facility] for consideration of possible transplantation. Assessment and plan reviewed with pt at bedside. Subjective Date of service: 09/21/17 Interval history: He feels a lot better this am. Objective Vital Signs Temp Pulse Resp BP Pulse Ox 09/21/17 09:06 89 90/47 09/21/17 08:50 99.0 F 89 18 90/47 92 09/21/17 04:07 98.3 F 84 20 89/56 92 09/20/17 23:45 98.5 F 92 H 20 80/57 95 09/20/17 20:07 98.5 F 102 H 18 110/72 95 09/20/17 20:00 82 09/20/17 16:33 98.1 F 97 H 18 95/63 96 09/20/17 12:00 93 H 09/20/17 11:58 16 100/61 - Physical Examination HEENT: Positive: PERRL, Normocephaly, Mucus Membranes Moist Neck: Positive: neck supple Neuro: Positive: Grossly Intact, Cranial Nerve 2-12 Intact Abdomen: Positive: Unremarkable, Soft, Active Bowel Sounds. Negative: Tender Skin: Positive: Other (ecchymosis to BUE and abdomen) Musculoskeletal: Fluid Collection, Normal Range of Motion Extremities: Present: +3 Edema (BLE pitting ) - Labs and Meds Cardiac Enzymes 09/20/17 Range/Units 04:00 AST 15 (5-40) units/L Lactate Dehydrogenase 284 H (91-180) units/L CBC 09/21/17 Range/Units 03:44 WBC 9.0 (4.5-11.0) K/mm3 RBC 3.05 L (3.65-5.03) M/mm3 Hgb 9.3 L (11.8-15.2) gm/dl Hct 27.1 L (35.5-45.6) % Plt Count 175 (140-440) K/mm3 Comprehensive Metabolic Panel 09/20/17 09/21/17 Range/Units 04:00 03:44 Sodium 139 (137-145) mmol/L Potassium 3.8 (3.6-5.0) mmol/L Chloride 99.4 (98-107) mmol/L Carbon Dioxide 29 (22-30) mmol/L BUN 30 H (9-20) mg/dL Creatinine 1.4 (0.8-1.5) mg/dL Glucose 57 L (75-100) mg/dL Calcium 8.5 (8.4-10.2) mg/dL Direct Bilirubin 0.3 H (0-0.2) mg/dL Indirect Bilirubin 0.8 mg/dL AST 15 (5-40) units/L ALT 7 (7-56) units/L Alkaline Phosphatase 121 (35-129) units/L Total Protein 6.2 L (6.3-8.2) g/dL Albumin 3.2 L (3.9-5) g/dL - Imaging and Cardiology EKG: report reviewed, image reviewed Echo: report reviewed (08/13/2017: EF 15-20%, LA mildly dilated, mild MR, mild TR , LV mildly dilated, EF 15-20%, severe pulm HTN RVSP 68mmHg) Pacemaker: ventricular pacing w/capt
--- NOTE | 2017-09-21 10:27 | Progress Note ---
Assessment and Plan Assessment and plan: 62 year old male with a past medical history significant for chronic systolic heart failure, ICMP (EF20), CKD, Pulmonary HTN, DM, CAD, PCI, recent BI-V AICD implantation, Chronic Respiratory Failure, directly admitted to the hospitalist service at the request of Dr. Beasley, admitted for CHF SOB, ART, orthopnea, CHF exacerbation RIght lung effusion- moderate to large new onset Status post thoracentesis, 2.5 L of bloody fluid, likely consistent with traumatic tap. Follow-up cytology Remarkably improved Acute on chronic systolic CHF (congestive heart failure),ICMP (EF20%) - recent BI-V AICD implantation continue dobutamine drip, cards input appreciated, continue diuretics, BP is too low, has been unable to tolerate ricki/arb, continue B-Bl as tolerated Acute respiratory failure continue supplemental oxygen Diabetes AD diet, insulin accu check CAD (coronary artery disease) patient known to [facility] Statin therapy, antiplatelet therapy, low cholesterol diet, telemetry monitoring , History Interval history: Status post right thoracentesis removal of 2.5 L. Patient feels much better, states that shortness of breath is remarkably improved. Hospitalist Physical - Physical exam Narrative exam: General.: Appears well, no distress, nontoxic HEENT: Moist mucous membranes, extraocular muscles intact, no lymphadenopathy Neck: supple Cardiac: S1-S2 heard Lungs: Bibasilar crackles Abdomen: soft , nontender, nondistended, bowel sounds positive Extremities: no edema clubbing or cyanosis Skin: no rash or lesions Neurologic: no gross focal deficits Psych: appropriate behavior, appropriate mood, corporative, judgment intact - Constitutional Vitals: Temp Pulse Resp BP Pulse Ox 99.0 F 89 18 90/47 92 09/21/17 08:50 09/21/17 09:06 09/21/17 08:50 09/21/17 09:06 09/21/17 08:50 General appearance: Present: mild distress Results - Labs CBC & Chem 7: 09/22/17 05:19 09/22/17 05:19 Labs: Laboratory Last Values WBC 9.0 K/mm3 (4.5-11.0) 09/21/17 03:44 RBC 3.05 M/mm3 (3.65-5.03) L 09/21/17 03:44 Hgb 9.3 gm/dl (11.8-15.2) L 09/21/17 03:44 Hct 27.1 % (35.5-45.6) L 09/21/17 03:44 MCV 89 fl (84-94) 09/21/17 03:44 MCH 31 pg (28-32) 09/21/17 03:44 MCHC 34 % (32-34) 09/21/17 03:44 RDW 15.0 % (13.2-15.2) 09/21/17 03:44 Plt Count 175 K/mm3 (140-440) 09/21/17 03:44 PT 14.3 Sec. (12.2-14.9) 09/19/17 14:01 INR 1.06 (0.87-1.13) 09/19/17 14:01 Sodium 139 mmol/L (137-145) 09/21/17 03:44 Potassium 3.8 mmol/L (3.6-5.0) 09/21/17 03:44 Chloride 99.4 mmol/L (98-107) 09/21/17 03:44 Carbon Dioxide 29 mmol/L (22-30) 09/21/17 03:44 Anion Gap 14 mmol/L 09/21/17 03:44 BUN 30 mg/dL (9-20) H 09/21/17 03:44 Creatinine 1.4 mg/dL (0.8-1.5) 09/21/17 03:44 Estimated GFR 52 ml/min 09/21/17 03:44 BUN/Creatinine Ratio 21 % 09/21/17 03:44 Glucose 57 mg/dL (75-100) L 09/21/17 03:44 POC Glucose 150 (70-105) H 09/21/17 07:42 Calcium 8.5 mg/dL (8.4-10.2) 09/21/17 03:44 Total Bilirubin 1.10 mg/dL (0.1-1.2) 09/20/17 04:00 Direct Bilirubin 0.3 mg/dL (0-0.2) H 09/20/17 04:00 Indirect Bilirubin 0.8 mg/dL 09/20/17 04:00 AST 15 units/L (5-40) 09/20/17 04:00 ALT 7 units/L (7-56) 09/20/17 04:00 Alkaline Phosphatase 121 units/L (35-129) 09/20/17 04:00 Lactate Dehydrogenase 284 units/L (91-180) H 09/20/17 04:00 NT-Pro-B Natriuret Pep 7991 pg/mL (0-900) H 09/19/17 14:02 Total Protein 6.2 g/dL (6.3-8.2) L 09/20/17 04:00 Albumin 3.2 g/dL (3.9-5) L 09/20/17 04:00 Albumin/Globulin Ratio 1.1 % 09/20/17 04:00 Fluid Type Pleural 09/20/17 14:30 Fluid Color Red 09/20/17 14:30 Fluid Appearance Turbid 09/20/17 14:30 Fluid WBC 12 /mm3 09/20/17 14:30 Fluid RBC 68654 /mm3 09/20/17 14:30 Fluid Seg Neutrophils 43.0 % 09/20/17 14:30 Fluid Lymphocytes 53.0 % 09/20/17 14:30 Fluid Reactive Lymphs 0 % 09/20/17 14:30 Fluid Monocytes 4.0 % 09/20/17 14:30 Fluid Eosinophils 0 % 09/20/17 14:30 Fluid Basophils 0 % 09/20/17 14:30
[2017-09-21] MEDS: LOPRESSOR PO SCH ×2 (12:16→21:46)
[2017-09-21] MEDS: DOBUTREX DRIP 500MG/D5W 250ML 500 MG/250 ML BAG IV SCH (15:31)
--- NOTE | 2017-09-21 16:10 | Progress Note ---
Assessment and Plan - Patient Problems (1) Acute on chronic systolic heart failure Current Visit: Yes Status: Acute Plan to address problem: Continue gentle diuresis. Try to maintain negative fluid balance. Follow up volume status (2) Chronic kidney disease, stage III (moderate) Current Visit: Yes Status: Acute Plan to address problem: Kidney function is not significantly changed. Continue current management. Follow up electrolytes and renal function (3) Hypertensive chronic kidney disease with stage 1 through stage 4 chronic kidney disease, or unspecified chronic kidney disease Current Visit: Yes Status: Acute Plan to address problem: Follow up blood pressure on current medications (4) Pleural effusion, right Current Visit: Yes Status: Acute Plan to address problem: Status post thoracentesis. Continue management Subjective Date of service: 09/21/17 Principal diagnosis: chronic kidney disease Interval history: Patient seen lying in bed. Frustrated. Denies any chest pain or shortness of breath now. Feels better since he had thoracentesis. No nausea or vomiting Objective - Exam Narrative Exam: Middle-aged male lying in bed in no acute distress HEENT: NCAT, pink oral mucous membrane Neck: Supple, no venous distention CVS: S1S2 RRR with no murmur, rub or gallop Chest: Clear to auscultation Abdomen: Protuberant, soft, nontender, no organomegaly, bowel sounds are present Extremities: trace edema Neuro: Awake, alert no focal deficits - Vital Signs Vital signs: Vital Signs - 12hr 09/21/17 09/21/17 09/21/17 04:07 08:50 09:06 Temperature 98.3 F 99.0 F Pulse Rate 84 89 89 Respiratory 20 18 Rate Blood Pressure 89/56 90/47 90/47 Blood Pressure [Left] O2 Sat by Pulse 92 92 Oximetry 09/21/17 09/21/17 12:00 12:58 Temperature 97.9 F Pulse Rate 92 H 90 Respiratory Rate Blood Pressure Blood Pressure 102/74 [Left] O2 Sat by Pulse 98 Oximetry - Lab 09/21/17 03:44 09/21/17 03:44 Most recent lab results Calcium 8.5 mg/dL (8.4-10.2) 09/21/17 03:44
[2017-09-21] MEDS: LEVEMIR SUB-Q SCH (22:01)
[2017-09-22] MEDS: BUMEX IV SCH (06:11)
[2017-09-22 06:30] LABS: Basophils % (Auto) 1.1 % (0.0-1.8); Eosinophils % (Auto) 4.8 % (0.0-4.3); Hematocrit 29.2 % (35.5-45.6); Hemoglobin 9.9 gm/dl (11.8-15.2); Mean Corpuscular HGB Conc 34 % (32-34); Mean Corpuscular Hemoglobin 31 pg (28-32); Mean Corpuscular Volume 91 fl (84-94); Platelet Count 199 K/mm3 (140-440); Red Blood Count 3.22 M/mm3 (3.65-5.03); Red Cell Distribution Width 15.2 % (13.2-15.2); White Blood Count 8.4 K/mm3 (4.5-11.0)
[2017-09-22 06:44] LABS: Calcium 8.4 mg/dL (8.4-10.2); Chloride 97.5 mmol/L (98-107); Potassium 3.7 mmol/L (3.6-5.0)
[2017-09-22] MEDS: NOVOLOG SUB-Q SCH ×4 (09:30→22:55)
--- NOTE | 2017-09-22 09:37 | Progress Note ---
Assessment and Plan Assessment and plan: 62 year old male with a past medical history significant for chronic systolic heart failure, ICMP (EF20), CKD, Pulmonary HTN, DM, CAD, PCI, recent BI-V AICD implantation, Chronic Respiratory Failure, directly admitted to the hospitalist service at the request of Dr. Beasley, admitted for CHF SOB, ART, orthopnea, CHF exacerbation RIght lung effusion- moderate to large new onset Status post thoracentesis, 2.5 L of bloody fluid, likely consistent with traumatic tap. Follow-up cytology Remarkably improved Acute on chronic systolic CHF (congestive heart failure),ICMP (EF20%) - recent BI-V AICD implantation dc dobutamine drip cards input appreciated, continue diuretics, BP is too low, has been unable to tolerate ricki/arb, continue B-Bl as tolerated Acute respiratory failure continue supplemental oxygen Diabetes AD diet, insulin accu check CAD (coronary artery disease) patient known to [facility] Statin therapy, antiplatelet therapy, low cholesterol diet, telemetry monitoring , History Interval history: Patient feels much better, states that shortness of breath is remarkably improved. Hospitalist Physical - Physical exam Narrative exam: General.: Appears well, no distress, nontoxic HEENT: Moist mucous membranes, extraocular muscles intact, no lymphadenopathy Neck: supple Cardiac: S1-S2 heard Lungs: Bibasilar crackles Abdomen: soft , nontender, nondistended, bowel sounds positive Extremities: no edema clubbing or cyanosis Skin: no rash or lesions Neurologic: no gross focal deficits Psych: appropriate behavior, appropriate mood, corporative, judgment intact - Constitutional Vitals: Temp Pulse Resp BP Pulse Ox 98.2 F 93 H 19 96/71 97 09/22/17 07:48 09/22/17 07:49 09/22/17 07:48 09/22/17 07:48 09/22/17 07:49 Results - Labs CBC & Chem 7: 09/22/17 05:19 09/22/17 05:19 Labs: Laboratory Last Values WBC 8.4 K/mm3 (4.5-11.0) 09/22/17 05:19 RBC 3.22 M/mm3 (3.65-5.03) L 09/22/17 05:19 Hgb 9.9 gm/dl (11.8-15.2) L 09/22/17 05:19 Hct 29.2 % (35.5-45.6) L 09/22/17 05:19 MCV 91 fl (84-94) 09/22/17 05:19 MCH 31 pg (28-32) 09/22/17 05:19 MCHC 34 % (32-34) 09/22/17 05:19 RDW 15.2 % (13.2-15.2) 09/22/17 05:19 Plt Count 199 K/mm3 (140-440) 09/22/17 05:19 Lymph % (Auto) 20.1 % (13.4-35.0) 09/22/17 05:19 [place] % (Auto) 8.9 % (0.0-7.3) H 09/22/17 05:19 Eos % (Auto) 4.8 % (0.0-4.3) H 09/22/17 05:19 Baso % (Auto) 1.1 % (0.0-1.8) 09/22/17 05:19 Lymph # 1.7 K/mm3 (1.2-5.4) 09/22/17 05:19 [place] # 0.8 K/mm3 (0.0-0.8) 09/22/17 05:19 Eos # 0.4 K/mm3 (0.0-0.4) 09/22/17 05:19 Baso # 0.1 K/mm3 (0.0-0.1) 09/22/17 05:19 Seg Neutrophils % 65.1 % (40.0-70.0) 09/22/17 05:19 Seg Neutrophils # 5.5 K/mm3 (1.8-7.7) 09/22/17 05:19 PT 14.3 Sec. (12.2-14.9) 09/19/17 14:01 INR 1.06 (0.87-1.13) 09/19/17 14:01 Sodium 139 mmol/L (137-145) 09/22/17 05:19 Potassium 3.7 mmol/L (3.6-5.0) 09/22/17 05:19 Chloride 97.5 mmol/L (98-107) L 09/22/17 05:19 Carbon Dioxide 28 mmol/L (22-30) 09/22/17 05:19 Anion Gap 17 mmol/L 09/22/17 05:19 BUN 27 mg/dL (9-20) H 09/22/17 05:19 Creatinine 1.3 mg/dL (0.8-1.5) 09/22/17 05:19 Estimated GFR 56 ml/min 09/22/17 05:19 BUN/Creatinine Ratio 21 % 09/22/17 05:19 Glucose 140 mg/dL (75-100) H 09/22/17 05:19 POC Glucose 115 (70-105) H 09/22/17 08:15 Calcium 8.4 mg/dL (8.4-10.2) 09/22/17 05:19 Total Bilirubin 1.10 mg/dL (0.1-1.2) 09/20/17 04:00 Direct Bilirubin 0.3 mg/dL (0-0.2) H 09/20/17 04:00 Indirect Bilirubin 0.8 mg/dL 09/20/17 04:00 AST 15 units/L (5-40) 09/20/17 04:00 ALT 7 units/L (7-56) 09/20/17 04:00 Alkaline Phosphatase 121 units/L (35-129) 09/20/17 04:00 Lactate Dehydrogenase 284 units/L (91-180) H 09/20/17 04:00 NT-Pro-B Natriuret Pep 7991 pg/mL (0-900) H 09/19/17 14:02 Total Protein 6.2 g/dL (6.3-8.2) L 09/20/17 04:00 Albumin 3.2 g/dL (3.9-5) L 09/20/17 04:00 Albumin/Globulin Ratio 1.1 % 09/20/17 04:00 Fluid Type Pleural 09/20/17 14:30 Fluid Color Red 09/20/17 14:30 Fluid Appearance Turbid 09/20/17 14:30 Fluid WBC 12 /mm3 09/20/17 14:30 Fluid RBC 50459 /mm3 09/20/17 14:30 Fluid Seg Neutrophils 43.0 % 09/20/17 14:30 Fluid Lymphocytes 53.0 % 09/20/17 14:30 Fluid Reactive Lymphs 0 % 09/20/17 14:30 Fluid Monocytes 4.0 % 09/20/17 14:30 Fluid Eosinophils 0 % 09/20/17 14:30 Fluid Basophils 0 % 09/20/17 14:30 - Imaging and Cardiology Chest x-ray: image reviewed (interval reduction in size of R pleural effusion)
[2017-09-22] MEDS ORDERED: BUMEX IV SCH (10:00)
--- NOTE | 2017-09-22 10:09 | XRay Report ---
AP CHEST :09/22/17 CLINICAL: Dyspnea. COMPARISON:11/20/16 FINDINGS: Stable mild cardiomegaly with pacer leads in heart. Mild central vascular congestion. The lungs are normally expanded and clear. No airspace disease or pleural effusion. IMPRESSION: Cardiomegaly and pulmonary venous hypertension. No pulmonary edema.
[2017-09-22] MEDS: BABY ASPIRIN PO SCH (10:14)
[2017-09-22] MEDS: LOPRESSOR PO SCH ×3 (10:14→22:48)
[2017-09-22] MEDS: PLAVIX PO SCH (10:15)
--- NOTE | 2017-09-22 11:01 | Progress Note ---
Assessment and Plan 62yo WM: Assessment: Acute on chronic systolic biventricular heart failure Right pleural effusion (s/p thoracentesis) ICMP (EF20%) - recent BI-V AICD implantation CKD Anemia Severe pulmonary HTN DM CAD s/p PCI 02/2017 Plan: Clinically improved. dc dobutamine possible am dc Will plan for referral to [facility] for consideration of possible transplantation. Assessment and plan reviewed with pt at bedside. Subjective Date of service: 09/22/17 Principal diagnosis: chronic kidney disease Interval history: still feels better less sob Objective Vital Signs Temp Pulse Resp BP BP Pulse Ox 09/22/17 10:16 89 97/57 09/22/17 07:49 93 H 97 09/22/17 07:48 98.2 F 97 H 19 96/71 98 09/22/17 05:42 98.5 F 96 H 20 98/60 94 09/22/17 04:00 96 H 09/22/17 00:24 98.2 F 91 H 20 91/49 94 09/21/17 21:46 68 106/98 09/21/17 20:32 98.3 F 97 H 20 115/76 96 09/21/17 20:00 97 H 09/21/17 17:58 98.6 F 93 H 18 106/68 97 09/21/17 12:58 90 98 09/21/17 12:00 97.9 F 92 H 102/74 - Physical Examination HEENT: Positive: PERRL, Normocephaly, Mucus Membranes Moist Neck: Positive: neck supple Neuro: Positive: Grossly Intact, Cranial Nerve 2-12 Intact Abdomen: Positive: Unremarkable, Soft, Active Bowel Sounds. Negative: Tender Skin: Positive: Other (ecchymosis to BUE and abdomen) Musculoskeletal: Fluid Collection, Normal Range of Motion Extremities: Present: +3 Edema (BLE pitting ) - Labs and Meds CBC 09/22/17 Range/Units 05:19 WBC 8.4 (4.5-11.0) K/mm3 RBC 3.22 L (3.65-5.03) M/mm3 Hgb 9.9 L (11.8-15.2) gm/dl Hct 29.2 L (35.5-45.6) % Plt Count 199 (140-440) K/mm3 Lymph # 1.7 (1.2-5.4) K/mm3 [place] # 0.8 (0.0-0.8) K/mm3 Eos # 0.4 (0.0-0.4) K/mm3 Baso # 0.1 (0.0-0.1) K/mm3 Comprehensive Metabolic Panel 09/22/17 Range/Units 05:19 Sodium 139 (137-145) mmol/L Potassium 3.7 (3.6-5.0) mmol/L Chloride 97.5 L (98-107) mmol/L Carbon Dioxide 28 (22-30) mmol/L BUN 27 H (9-20) mg/dL Creatinine 1.3 (0.8-1.5) mg/dL Glucose 140 H (75-100) mg/dL Calcium 8.4 (8.4-10.2) mg/dL - Imaging and Cardiology EKG: report reviewed, image reviewed Echo: report reviewed (08/13/2017: EF 15-20%, LA mildly dilated, mild MR, mild TR , LV mildly dilated, EF 15-20%, severe pulm HTN RVSP 68mmHg) Pacemaker: ventricular pacing w/capt
--- NOTE | 2017-09-22 13:06 | Progress Note ---
Assessment and Plan 62 y/o male with systolic heart failure admitted with heart failure exacerbation and right sided effusion. Pulm status is stable. Working diagnosis is traumatic tap given patient on plavix. No reaccumulation so likely not actively bleeding. Path and remainder of PFA still not back. No objection to discharge from lung standpoint. Can follow up with [place], if needed. Once remainder of lab work back, we can let patient know if he should come in. Will sign off for now. Call if questions. Subjective Date of service: 09/22/17 Principal diagnosis: chronic kidney disease Interval history: No acute events. Repeat CXR this am shows no effusion, no recurrence. Still on room air. Objective Vital Signs - 12hr 09/22/17 09/22/17 09/22/17 04:00 05:42 07:48 Temperature 98.5 F 98.2 F Pulse Rate 96 H 96 H 97 H Respiratory 20 19 Rate Blood Pressure 98/60 96/71 O2 Sat by Pulse 94 98 Oximetry 09/22/17 09/22/17 09/22/17 07:49 10:16 12:02 Temperature 98.5 F Pulse Rate 93 H 89 95 H Respiratory Rate Blood Pressure 97/57 109/71 O2 Sat by Pulse 97 98 Oximetry Constitutional: no acute distress, alert Eyes: non-icteric ENT: oropharynx moist Neck: supple, JVD Ascultation: Right: diminished breath sounds (base), Bilateral: clear Percussion: Right: dull (base) Cardiovascular: regular rate and rhythm Gastrointestinal: normoactive bowel sounds, soft Extremities: edema CBC and BMP: 09/22/17 05:19 09/22/17 05:19 ABG, PT/INR, D-dimer: PT/INR, D-dimer PT 14.3 Sec. (12.2-14.9) 09/19/17 14:01 INR 1.06 (0.87-1.13) 09/19/17 14:01 Abnormal lab findings: Abnormal Labs 09/19/17 09/19/17 09/19/17 14:02 14:02 14:02 RBC 3.47 L Hgb 10.4 L Hct 31.0 L [place] % (Auto) Eos % (Auto) Chloride 95.6 L Carbon Dioxide 31 H BUN 26 H Glucose 172 H POC Glucose Direct Bilirubin Alkaline Phosphatase 135 H Lactate Dehydrogenase NT-Pro-B Natriuret Pep 7991 H Total Protein Albumin 3.6 L 09/19/17 09/19/17 09/20/17 16:46 21:37 04:00 RBC Hgb Hct [place] % (Auto) Eos % (Auto) Chloride 96.4 L Carbon Dioxide 31 H BUN 30 H Glucose 211 H POC Glucose 165 H 171 H Direct Bilirubin Alkaline Phosphatase Lactate Dehydrogenase NT-Pro-B Natriuret Pep Total Protein Albumin 09/20/17 09/20/17 09/20/17 04:00 07:36 11:57 RBC Hgb Hct [place] % (Auto) Eos % (Auto) Chloride Carbon Dioxide BUN Glucose POC Glucose 179 H 301 H Direct Bilirubin 0.3 H Alkaline Phosphatase Lactate Dehydrogenase 284 H NT-Pro-B Natriuret Pep Total Protein 6.2 L Albumin 3.2 L 09/20/17 09/20/17 09/21/17 16:35 21:42 03:44 RBC 3.05 L Hgb 9.3 L Hct 27.1 L [place] % (Auto) Eos % (Auto) Chloride Carbon Dioxide BUN Glucose POC Glucose 131 H 214 H Direct Bilirubin Alkaline Phosphatase Lactate Dehydrogenase NT-Pro-B Natriuret Pep Total Protein Albumin 09/21/17 09/21/17 09/21/17 03:44 07:42 11:44 RBC Hgb Hct [place] % (Auto) Eos % (Auto) Chloride Carbon Dioxide BUN 30 H Glucose 57 L POC Glucose 150 H 162 H Direct Bilirubin Alkaline Phosphatase Lactate Dehydrogenase NT-Pro-B Natriuret Pep Total Protein Albumin 09/21/17 09/21/17 09/22/17 17:23 21:38 05:19 RBC 3.22 L Hgb 9.9 L Hct 29.2 L [place] % (Auto) 8.9 H Eos % (Auto) 4.8 H Chloride Carbon Dioxide BUN Glucose POC Glucose 230 H 122 H Direct Bilirubin Alkaline Phosphatase Lactate Dehydrogenase NT-Pro-B Natriuret Pep Total Protein Albumin 09/22/17 09/22/17 09/22/17 05:19 08:15 11:38 RBC Hgb Hct [place] % (Auto) Eos % (Auto) Chloride 97.5 L Carbon Dioxide BUN 27 H Glucose 140 H POC Glucose 115 H 180 H Direct Bilirubin Alkaline Phosphatase Lactate Dehydrogenase NT-Pro-B Natriuret Pep Total Protein Albumin
--- NOTE | 2017-09-22 14:13 | Progress Note ---
Assessment and Plan - Patient Problems (1) Acute on chronic systolic heart failure Current Visit: Yes Status: Acute Plan to address problem: Continue gentle diuresis. 0.7 L negative fluid balance. Continue to maintain negative fluid balance. Follow up volume status (2) Chronic kidney disease, stage III (moderate) Current Visit: Yes Status: Acute Plan to address problem: Kidney function is marginally better. Continue current management. Follow up electrolytes and renal function (3) Hypertensive chronic kidney disease with stage 1 through stage 4 chronic kidney disease, or unspecified chronic kidney disease Current Visit: Yes Status: Acute Plan to address problem: Follow up blood pressure on current medications (4) Pleural effusion, right Current Visit: Yes Status: Acute Plan to address problem: Status post thoracentesis. Continue management Subjective Date of service: 09/22/17 Principal diagnosis: chronic kidney disease Interval history: Patient seen lying in bed. Feels better today. Denies any chest pain or shortness of breath now. No nausea or vomiting Objective - Exam Narrative Exam: Middle-aged male lying in bed in no acute distress HEENT: NCAT, pink oral mucous membrane Neck: Supple, no venous distention CVS: S1S2 RRR with no murmur, rub or gallop Chest: Clear to auscultation Abdomen: Protuberant, soft, nontender, no organomegaly, bowel sounds are present Extremities: mild edema both legs Neuro: Awake, alert no focal deficits - Vital Signs Vital signs: Vital Signs - 12hr 09/22/17 09/22/17 09/22/17 04:00 05:42 07:48 Temperature 98.5 F 98.2 F Pulse Rate 96 H 96 H 97 H Respiratory 20 19 Rate Blood Pressure 98/60 96/71 O2 Sat by Pulse 94 98 Oximetry 09/22/17 09/22/17 09/22/17 07:49 10:16 12:02 Temperature 98.5 F Pulse Rate 93 H 89 95 H Respiratory Rate Blood Pressure 97/57 109/71 O2 Sat by Pulse 97 98 Oximetry - Lab 09/22/17 05:19 09/22/17 05:19 Most recent lab results Calcium 8.4 mg/dL (8.4-10.2) 09/22/17 05:19
[2017-09-22] MEDS: HEPARIN SUB-Q SCH ×2 (15:06→22:52)
[2017-09-22] MEDS: LEVEMIR SUB-Q SCH (22:46)
[2017-09-23] MEDS: BUMEX IV SCH ×3 (06:19→11:18)
--- NOTE | 2017-09-23 08:35 | Progress Note ---
Assessment and Plan - Patient Problems (1) Acute on chronic systolic heart failure Current Visit: Yes Status: Acute Plan to address problem: Continue gentle diuresis. 0.7 L negative fluid balance. Patient can be discharged home on oral diuretics from renal standpoint. We'll schedule an early full up as an outpatient (2) Chronic kidney disease, stage III (moderate) Current Visit: Yes Status: Acute Plan to address problem: Kidney function is marginally better. Continue current management. Follow up electrolytes and renal function (3) Hypertensive chronic kidney disease with stage 1 through stage 4 chronic kidney disease, or unspecified chronic kidney disease Current Visit: Yes Status: Acute Plan to address problem: Follow up blood pressure on current medications (4) Pleural effusion, right Current Visit: Yes Status: Acute Plan to address problem: Status post thoracentesis. Continue management Subjective Date of service: 09/23/17 Principal diagnosis: chronic kidney disease Interval history: Patient seen lying in bed. Feels better today. He wants to go home. Denies any chest pain or shortness of breath now. No nausea or vomiting Objective - Exam Narrative Exam: Middle-aged male lying in bed in no acute distress HEENT: NCAT, pink oral mucous membrane Neck: Supple, no venous distention CVS: S1S2 RRR with no murmur, rub or gallop Chest: Clear to auscultation Abdomen: Protuberant, soft, nontender, no organomegaly, bowel sounds are present Extremities: mild edema both legs Neuro: Awake, alert no focal deficits - Vital Signs Vital signs: Vital Signs - 12hr 09/22/17 09/22/17 22:00 22:48 Pulse Rate 95 H Pulse Rate [ 90 Left Radial] Respiratory 18 Rate Blood Pressure 102/71 - Lab 09/22/17 05:19 09/22/17 05:19 Most recent lab results Calcium 8.4 mg/dL (8.4-10.2) 09/22/17 05:19
--- NOTE | 2017-09-23 10:34 | Progress Note ---
Assessment and Plan Assessment: Acute on chronic systolic biventricular heart failure Right bloody pleural effusion - s/p thoracentesis with total of 2.5 liters removed ICMP (EF20%) - recent BI-V AICD implantation CKD Anemia Severe pulmonary HTN DM CAD s/p PCI 02/2017 Plan: Add zaroxolyn to regimen. Cont all other present management. Consider d/c in AM. Assessment and plan reviewed with pt at bedside. The pt has been seen in conjunction with Dr. Washburn who agrees with the assessment and plan of care. Subjective Date of service: 09/23/17 Principal diagnosis: chronic kidney disease Interval history: Pt sitting up in chair, denies SOB or chest pain. Still with persistent BLE pitting edema. VSS. Dobutamine gtt d/c'd. Objective Last Vital Signs Temp 98.2 F 09/22/17 15:32 Pulse 95 H 09/22/17 22:48 Resp 18 09/22/17 22:00 BP 102/71 09/22/17 22:48 Pulse Ox 97 09/22/17 15:33 - Physical Examination HEENT: Positive: PERRL, Normocephaly, Mucus Membranes Moist Neck: Positive: neck supple Cardiac: Positive: Reg Rate and Rhythm, S1/S2 Lungs: Positive: clear to auscultation Neuro: Positive: Grossly Intact, Cranial Nerve 2-12 Intact Abdomen: Positive: Unremarkable, Soft, Active Bowel Sounds. Negative: Tender Skin: Positive: Other (ecchymosis to BUE and abdomen) Musculoskeletal: Fluid Collection, Normal Range of Motion Extremities: Present: +3 Edema (BLE pitting ) - Imaging and Cardiology EKG: report reviewed, image reviewed Echo: report reviewed (08/13/2017: EF 15-20%, LA mildly dilated, mild MR, mild TR , LV mildly dilated, EF 15-20%, severe pulm HTN RVSP 68mmHg) Pacemaker: ventricular pacing w/capt
[2017-09-23] MEDS: NOVOLOG SUB-Q SCH ×3 (10:58→16:30)
--- NOTE | 2017-09-23 11:04 | Progress Note ---
Assessment and Plan Assessment and plan: 62 year old male with a past medical history significant for chronic systolic heart failure, ICMP (EF20), CKD, Pulmonary HTN, DM, CAD, PCI, recent BI-V AICD implantation, Chronic Respiratory Failure, directly admitted to the hospitalist service at the request of Dr. Beasley, admitted for CHF SOB, ART, orthopnea, CHF exacerbation RIght lung effusion- moderate to large new onset Status post thoracentesis, 2.5 L of bloody fluid, likely consistent with traumatic tap. Follow-up cytology Remarkably improved Acute on chronic systolic CHF (congestive heart failure),ICMP (EF20%) - recent BI-V AICD implantation dobutamine drip was dc yeter, 09/22 cards input appreciated, continue diuretics, BP is too low, has been unable to tolerate ricki/arb, continue B-Bl as tolerated add metolazone and monitor for one more day Acute respiratory failure continue supplemental oxygen Diabetes AD diet, insulin accu check CAD (coronary artery disease) patient known to [facility] Statin therapy, antiplatelet therapy, low cholesterol diet, telemetry monitoring , CKD stage 3 nephrology input appreciated stable, avoid nephrotoxic drugs History Interval history: Patient feels much better, states that shortness of breath is remarkably improved. Hospitalist Physical - Physical exam Narrative exam: General.: Appears well, no distress, nontoxic HEENT: Moist mucous membranes, extraocular muscles intact, no lymphadenopathy Neck: supple Cardiac: S1-S2 heard Lungs: CTA bilat Abdomen: soft , nontender, nondistended, bowel sounds positive Extremities: no edema clubbing or cyanosis Skin: no rash or lesions Neurologic: no gross focal deficits Psych: appropriate behavior, appropriate mood, corporative, judgment intact - Constitutional Vitals: Temp Pulse Resp BP Pulse Ox 98.2 F 95 H 18 102/71 97 09/22/17 15:32 09/22/17 22:48 09/22/17 22:00 09/22/17 22:48 09/22/17 15:33 General appearance: Present: mild distress Results - Labs CBC & Chem 7: 09/22/17 05:19 09/22/17 05:19 Labs: Laboratory Last Values WBC 8.4 K/mm3 (4.5-11.0) 09/22/17 05:19 RBC 3.22 M/mm3 (3.65-5.03) L 09/22/17 05:19 Hgb 9.9 gm/dl (11.8-15.2) L 09/22/17 05:19 Hct 29.2 % (35.5-45.6) L 09/22/17 05:19 MCV 91 fl (84-94) 09/22/17 05:19 MCH 31 pg (28-32) 09/22/17 05:19 MCHC 34 % (32-34) 09/22/17 05:19 RDW 15.2 % (13.2-15.2) 09/22/17 05:19 Plt Count 199 K/mm3 (140-440) 09/22/17 05:19 Lymph % (Auto) 20.1 % (13.4-35.0) 09/22/17 05:19 [place] % (Auto) 8.9 % (0.0-7.3) H 09/22/17 05:19 Eos % (Auto) 4.8 % (0.0-4.3) H 09/22/17 05:19 Baso % (Auto) 1.1 % (0.0-1.8) 09/22/17 05:19 Lymph # 1.7 K/mm3 (1.2-5.4) 09/22/17 05:19 [place] # 0.8 K/mm3 (0.0-0.8) 09/22/17 05:19 Eos # 0.4 K/mm3 (0.0-0.4) 09/22/17 05:19 Baso # 0.1 K/mm3 (0.0-0.1) 09/22/17 05:19 Seg Neutrophils % 65.1 % (40.0-70.0) 09/22/17 05:19 Seg Neutrophils # 5.5 K/mm3 (1.8-7.7) 09/22/17 05:19 PT 14.3 Sec. (12.2-14.9) 09/19/17 14:01 INR 1.06 (0.87-1.13) 09/19/17 14:01 Sodium 139 mmol/L (137-145) 09/22/17 05:19 Potassium 3.7 mmol/L (3.6-5.0) 09/22/17 05:19 Chloride 97.5 mmol/L (98-107) L 09/22/17 05:19 Carbon Dioxide 28 mmol/L (22-30) 09/22/17 05:19 Anion Gap 17 mmol/L 09/22/17 05:19 BUN 27 mg/dL (9-20) H 09/22/17 05:19 Creatinine 1.3 mg/dL (0.8-1.5) 09/22/17 05:19 Estimated GFR 56 ml/min 09/22/17 05:19 BUN/Creatinine Ratio 21 % 09/22/17 05:19 Glucose 140 mg/dL (75-100) H 09/22/17 05:19 POC Glucose 136 (70-105) H 09/22/17 20:55 Calcium 8.4 mg/dL (8.4-10.2) 09/22/17 05:19 Total Bilirubin 1.10 mg/dL (0.1-1.2) 09/20/17 04:00 Direct Bilirubin 0.3 mg/dL (0-0.2) H 09/20/17 04:00 Indirect Bilirubin 0.8 mg/dL 09/20/17 04:00 AST 15 units/L (5-40) 09/20/17 04:00 ALT 7 units/L (7-56) 09/20/17 04:00 Alkaline Phosphatase 121 units/L (35-129) 09/20/17 04:00 Lactate Dehydrogenase 284 units/L (91-180) H 09/20/17 04:00 NT-Pro-B Natriuret Pep 7991 pg/mL (0-900) H 09/19/17 14:02 Total Protein 6.2 g/dL (6.3-8.2) L 09/20/17 04:00 Albumin 3.2 g/dL (3.9-5) L 09/20/17 04:00 Albumin/Globulin Ratio 1.1 % 09/20/17 04:00 Fluid Type Pleural 09/20/17 14:30 Fluid Color Red 09/20/17 14:30 Fluid Appearance Turbid 09/20/17 14:30 Fluid WBC 12 /mm3 09/20/17 14:30 Fluid RBC 97369 /mm3 09/20/17 14:30 Fluid Seg Neutrophils 43.0 % 09/20/17 14:30 Fluid Lymphocytes 53.0 % 09/20/17 14:30 Fluid Reactive Lymphs 0 % 09/20/17 14:30 Fluid Monocytes 4.0 % 09/20/17 14:30 Fluid Eosinophils 0 % 09/20/17 14:30 Fluid Basophils 0 % 09/20/17 14:30
[2017-09-23] MEDS: BABY ASPIRIN PO SCH (11:06)
[2017-09-23] MEDS: LOPRESSOR PO SCH (11:06)
[2017-09-23] MEDS: PLAVIX PO SCH (11:06)
[2017-09-23] MEDS: HEPARIN SUB-Q SCH (11:07)
[2017-09-23] MEDS: ZAROXOLYN PO SCH (11:12)
[2017-09-23] MEDS: LEVEMIR SUB-Q SCH (23:01)
[2017-09-24] MEDS: HEPARIN SUB-Q SCH ×2 (02:01→10:49)
[2017-09-24] MEDS: LOPRESSOR PO SCH ×2 (02:02→10:49)
[2017-09-24] MEDS: NOVOLOG SUB-Q SCH ×3 (02:02→12:15)
[2017-09-24 05:51] LABS: Anion Gap 16 mmol/L; BUN/Creatinine Ratio 20; Blood Urea Nitrogen 24 mg/dL (9-20); Calcium 8.7 mg/dL (8.4-10.2); Carbon Dioxide 29 mmol/L (22-30); Chloride 97.7 mmol/L (98-107); Glucose 119 mg/dL (75-100); Potassium 4.4 mmol/L (3.6-5.0); Sodium 138 mmol/L (137-145)
[2017-09-24 07:25] LABS: LDH,Body Fluid 292; Total Protein,Body Fluid 4.2 (15.0-45.0)
--- NOTE | 2017-09-24 08:21 | Progress Note ---
Assessment and Plan - Patient Problems (1) Acute on chronic systolic heart failure Current Visit: Yes Status: Acute Plan to address problem: Continue gentle diuresis. 0.7 L negative fluid balance. Patient can be discharged home on oral diuretics from renal standpoint. We'll schedule an early full up as an outpatient (2) Chronic kidney disease, stage III (moderate) Current Visit: Yes Status: Acute Plan to address problem: Kidney function is marginally better. Continue current management. Follow up electrolytes and renal function (3) Hypertensive chronic kidney disease with stage 1 through stage 4 chronic kidney disease, or unspecified chronic kidney disease Current Visit: Yes Status: Acute Plan to address problem: Follow up blood pressure on current medications (4) Pleural effusion, right Current Visit: Yes Status: Acute Plan to address problem: Status post thoracentesis. Continue management Subjective Date of service: 09/24/17 Principal diagnosis: chronic kidney disease Interval history: Patient seen lying in bed. Feels better today. Lower extremity swelling is doing better today. He wants to go home. Denies any chest pain or shortness of breath now. No nausea or vomiting Objective - Exam Narrative Exam: Middle-aged male lying in bed in no acute distress HEENT: NCAT, pink oral mucous membrane Neck: Supple, no venous distention CVS: S1S2 RRR with no murmur, rub or gallop Chest: Clear to auscultation Abdomen: Protuberant, soft, nontender, no organomegaly, bowel sounds are present Extremities: trace edema both legs Neuro: Awake, alert no focal deficits - Vital Signs Vital signs: Vital Signs - 12hr 09/23/17 09/24/17 09/24/17 22:00 00:13 00:15 Temperature 97.6 F Pulse Rate 99 H 81 Pulse Rate [ 80 Right Radial] Respiratory 18 16 Rate Blood Pressure 90/53 Blood Pressure [Left] O2 Sat by Pulse 86 88 Oximetry 09/24/17 01:20 Temperature 97.6 F Pulse Rate 98 H Pulse Rate [ Right Radial] Respiratory 16 Rate Blood Pressure Blood Pressure 90/56 [Left] O2 Sat by Pulse 94 Oximetry - Lab 09/22/17 05:19 09/24/17 04:30 Most recent lab results Calcium 8.7 mg/dL (8.4-10.2) 09/24/17 04:30
--- NOTE | 2017-09-24 09:43 | Progress Note ---
Assessment and Plan Assessment: Acute on chronic systolic biventricular heart failure Right bloody pleural effusion - s/p thoracentesis with total of 2.5 liters removed ICMP (EF20%) - recent BI-V AICD implantation CKD Anemia Severe pulmonary HTN DM CAD s/p PCI 02/2017 Plan: Currently stable cardiac status. Pt may discharge home from cardiology standpoint. On discharge, recommend continuation of diuresis with PO bumex, 1mg BID. Also, recommend continuation of PO zaroxolyn 5mg every other day. Follow up in our [place] office for post-op device check on 09/25/2017 @ 10: 30AM. Follow up in our [place] office with Dr. Ware on 09/26/2017 @ 1:30PM. Assessment and plan reviewed with pt at bedside. The pt has been seen in conjunction with Dr. Washburn who agrees with the assessment and plan of care. Subjective Date of service: 09/24/17 Principal diagnosis: chronic kidney disease Interval history: Pt sitting up in chair, denies SOB or chest pain. BLE edema improved. VSS. Objective Last Vital Signs Temp 97.6 F 09/24/17 01:20 Pulse 98 H 09/24/17 01:20 Resp 16 09/24/17 01:20 BP 90/56 09/24/17 01:20 Pulse Ox 94 09/24/17 01:20 - Physical Examination General: Appears Well HEENT: Positive: PERRL, Normocephaly, Mucus Membranes Moist Neck: Positive: neck supple Cardiac: Positive: Reg Rate and Rhythm, S1/S2 Lungs: Positive: clear to auscultation Neuro: Positive: Grossly Intact, Cranial Nerve 2-12 Intact Abdomen: Positive: Unremarkable, Soft, Active Bowel Sounds. Negative: Tender Skin: Positive: Other (ecchymosis to BUE and abdomen) Musculoskeletal: Fluid Collection, Normal Range of Motion Extremities: Present: +1 Edema (BLE ) - Labs and Meds Comprehensive Metabolic Panel 09/24/17 Range/Units 04:30 Carbon Dioxide 29 (22-30) mmol/L BUN 24 H (9-20) mg/dL Creatinine 1.2 (0.8-1.5) mg/dL Glucose 119 H (75-100) mg/dL Calcium 8.7 (8.4-10.2) mg/dL - Imaging and Cardiology EKG: report reviewed, image reviewed Echo: report reviewed (08/13/2017: EF 15-20%, LA mildly dilated, mild MR, mild TR , LV mildly dilated, EF 15-20%, severe pulm HTN RVSP 68mmHg) - Telemetry EKG Rhythm: Paced Pacemaker: ventricular pacing w/capt
--- NOTE | 2017-09-24 09:57 | Discharge Summary ---
Providers - Providers Date of Admission: 09/19/17 11:56 Attending physician: ADITI ALEXANDER MD 09/19/17 14:07 Consult to Physician [CONS] Routine Consulting Provider: APPLE CAMPUZANO Reason For Exam: CKD Place consult to:: jose Notified:: office Phone number called:: [phone] Was contact made?: Yes If yes, spoke with:: francis Time called:: 14:40 Primary care physician: CATE GUTIERREZ Hospitalization Hospital course: 62 year old male with a past medical history significant for chronic systolic heart failure, ICMP (EF20), CKD, Pulmonary HTN, DM, CAD, PCI, recent BI-V AICD implantation, Chronic Respiratory Failure, directly admitted to the hospitalist service at the request of Dr. Beasley, admitted for CHF SOB, ART, orthopnea, CHF exacerbation. He was treated with diuretics for his CHF. Unfortunately due to low blood pressure patient was unable to tolerate beta mellisa or NURYS inhibitor. He received dobutamine drip was transitioned to oral medications. He did have a large right-sided pleural effusion. For which she received thoracentesis, fluid analysis was consistent with traumatic tap. He was call managed by cardiology and pulmonology while he was in hospital. The patient clinically improved and was subsequently discharged home Discharge diagnosis RIght lung effusion- moderate to large Acute on chronic systolic CHF (congestive heart failure),ICMP (EF20%) - recent BI-V AICD implantation Acute respiratory failure Diabetes CAD (coronary artery disease) CKD stage 3 Disposition: DC-01 TO HOME OR SELFCARE Time spent for discharge: 33 minutes Core Measure Documentation - Palliative Care Palliative Care/ Comfort Measures: Not Applicable - Core Measures Any of the following diagnoses?: heart failure - Heart Failure Discharge Requirements NURYS/ARB for LVSD if EF <40%: No Reason for no NURYS/ARB: Hypotension Beta mellisa at discharge: No Reason for no beta mellisa on DC: Hypotension Exam - Physical Exam Narrative exam: General.: Appears well, no distress, nontoxic HEENT: Moist mucous membranes, extraocular muscles intact, no lymphadenopathy Neck: supple Cardiac: S1-S2 heard Lungs: CTA bilat Abdomen: soft , nontender, nondistended, bowel sounds positive Extremities: 2 plus bipedal edema Skin: no rash or lesions Neurologic: no gross focal deficits Psych: appropriate behavior, appropriate mood, corporative, judgment intact - Constitutional Vitals: Temp Pulse Resp BP Pulse Ox 97.6 F 98 H 16 90/56 94 09/24/17 01:20 09/24/17 01:20 09/24/17 01:20 09/24/17 01:20 09/24/17 01:20 Plan Follow up with: KAVYA OLSON MD [Staff Physician] - 7 Days CATE GUTIERREZ MD [Primary Care Provider] - 7 Days Prescriptions: Bumetanide [Bumex 1 mg tab] 1 mg PO BID #60 tab Metolazone [Zaroxolyn] 5 mg PO Q48H #15 tablet
[2017-09-24] MEDS: BABY ASPIRIN PO SCH (10:47)
[2017-09-24] MEDS: PLAVIX PO SCH (10:47)
[2017-09-24] MEDS: BUMEX IV SCH (10:49)
[2017-09-24 10:50] VITALS: BP 91/58
[2017-09-24] MEDS: ZAROXOLYN PO SCH (10:50)
== END 2017-09-24 12:36 | disposition home or self-care (01) | DRG 291 ==
LOC: UNDOADMIN 10:12 → 4A 10:12
PROVIDERS: ADMIT Internal Medicine; ATTEND Internal Medicine
PROC: 0W993ZX Drainage of Right Pleural Cavity, Percutaneous Approach, Diagnostic (ICD-10-PCS; principal; 2017-09-20)
DX: I13.0 Hypertensive heart and chronic kidney disease with heart failure and stage 1 through stage 4 chronic kidney disease, or unspecified chronic kidney disease (principal); I50.23 Acute on chronic systolic (congestive) heart failure; J96.21 Acute and chronic respiratory failure with hypoxia; J90 Pleural effusion, not elsewhere classified; I25.10 Atherosclerotic heart disease of native coronary artery without angina pectoris; I25.5 Ischemic cardiomyopathy; E11.22 Type 2 diabetes mellitus with diabetic chronic kidney disease; N18.3 Chronic kidney disease, stage 3 (moderate); D64.9 Anemia, unspecified; Z95.810 Presence of automatic (implantable) cardiac defibrillator; Z82.49 Family history of ischemic heart disease and other diseases of the circulatory system; Z91.041 Radiographic dye allergy status; Z91.040 Latex allergy status
CPT/HCPCS: 36415; 71010; 80048; 80053; 80074; 82947; 82962; 83605; 83615; 83880; 84160; 85025; 85027; 85610; 87102; 87116; 89051; 93005; 93010; 93306; A9270-GY; J1250; J1644; J1815; J1818